=== PATIENT | male | born 1970 | race Caucasian/White ===

== ENCOUNTER 2018-09-16 05:58 | Outpatient (CLI) | payer BC ==
[~2018-09-16] VITALS: Ht 180.3 cm; Wt 88.5 kg
[2018-09-16] MEDS ORDERED: PANT40TA3 PO (11:52)
[2018-09-16] MEDS ORDERED: ALLO100T PO (11:52)
[2018-09-16] MEDS ORDERED: LISI1TAB6 PO (11:52)
[2018-09-20] MEDS ORDERED: SUCR1TAB36 PO (10:03)
== END 2018-09-16 11:54 | disposition home or self-care (01) ==
LOC: PREOP 05:58
PROVIDERS: ATTEND Surgery
DX: Z01.818 Encounter for other preprocedural examination (principal)

== ENCOUNTER 2018-09-20 09:18 | Day surgery (SDC) | payer BC ==
[~2018-09-20] VITALS: Ht 180.3 cm; Wt 88.5 kg
[~2018-09-20 09:18] MED LIST: ALLO100T PO; LISI1TAB6 PO; PANT40TA3 PO
[2018-09-20] MEDS ORDERED: LACTATED RINGERS 1,000 ML IV ONE (09:25)
[2018-09-20] MEDS ORDERED: LIDOCAINE JELLY 2% 6 ML SYRINGE MM PRN (09:30)
[2018-09-20] MEDS ORDERED: LACTATED RINGERS 1,000 ML IV STA (09:30)
[2018-09-20] MEDS ORDERED: HURRICAINE EXT TUBE (BENZOCAINE) XX PRN (09:30)
[2018-09-20 09:43] VITALS: BP 132/92
[2018-09-20] MEDS ORDERED: LIDOCAINE JELLY 2% 6 ML SYRINGE ONE (09:51)
[2018-09-20] MEDS ORDERED: HURRICAINE EXT TUBE (BENZOCAINE) ONE (09:52)
[2018-09-20] MEDS ORDERED: MIDAZOLAM 2 MG/2 ML (VERSED) VIAL ONE (10:01)
[2018-09-20] MEDS ORDERED: PROPOFOL INJECTION 50 ML IV ONE ×2 (10:01→10:20)
--- NOTE | 2018-09-20 10:02 | Progress Note-Pre Operative ---
Pre-Operative Progress Note H&P Reviewed The H&P was reviewed, patient examined and no changes noted. Date Seen by Provider: Sep 20, 2018 Time Seen by Provider: : Date H&P Reviewed: Sep 20, 2018 Time H&P Reviewed: : Pre-Operative Diagnosis: GERD, rectal bleed AURELIO SETH MD Sep 20, 2018 10:02
[2018-09-20] MEDS ORDERED: SUCR1TAB36 PO (10:03)
--- NOTE | 2018-09-20 10:04 | Discharge Inst-Surgical ---
D/C Lap Instructions-KIDO New, Converted, or Re-Newed RX: RX on Chart Follow Up Activity as tolerated High Fiber Diet 25g or more per day Avoid Alcohol, Caffeine, Spicy House and Acid foods. Drink 64 fluid oz or more of fluids per day. Symptoms to Report: Fever over 101 degree F, Nausea/Vomiting If any problems/questions: Contact your physician or go to Emergency Room AURELIO SETH MD Sep 20, 2018 10:04
[2018-09-20] MEDS ORDERED: morphine INJ 10 MG/ML 1ML (SYR OR VIAL) IV PRN (10:15)
[2018-09-20] MEDS ORDERED: ACETAMINOPHEN 325 MG TABLET PO PRN (10:15)
[2018-09-20] MEDS ORDERED: ONDANSETRON 4 MG/2 ML (SDV) Z0FRAN IV PRN (10:15)
[2018-09-20] MEDS ORDERED: HYDROcodone/APAP 5 MG/325 MG (LORTAB) TAB PO PRN (10:15)
--- NOTE | 2018-09-20 10:55 | Progress Note-Post Operative ---
Post-Operative Progess Note Surgeon (s)/Qa Specialist (s) Surgeon AURELIO SETH MD Qa Specialist: none Pre-Operative Diagnosis GERD, rectal bleed Post-Operative Diagnosis reflux esophagitis(stage 2), moderate-large HH(4-5cm), moderate gastritis. chronic stage 2 ext and int hemorrhoids, moderate sigmoid diverticulosis. Procedure & Operative Findings Date of Procedure 09/20/18 Procedure Performed/Findings EGD with bx. Colonoscopy. Anesthesia Type mac Estimated Blood Loss Estimated blood loss (mL): minimal Specimens/Packing Specimens Removed ge jxn, antrum AURELIO SETH MD Sep 20, 2018 10:55
[2018-09-20 11:05] VITALS: BP 121/88
[2018-09-20 11:35] VITALS: BP 127/94
[2018-09-20 12:00] VITALS: BP 127/94
--- NOTE | 2018-09-20 12:13 | Anesthesia-General Post-Op ---
MAC Patient Condition Mental Status/LOC: Same as Preop Cardiovascular: Satisfactory Nausea/Vomiting: Absent Respiratory: Satisfactory Pain: Controlled Complications: Absent Post Op Complications Complications None Follow Up Care/Instructions Patient Instructions None needed. Anesthesiology Discharge Order Discharge Order Patient is doing well, no complaints, stable vital signs, no apparent adverse anesthesia problems. No complications reported per nursing. HUONG WILLIS CRNA Sep 20, 2018 12:13
--- NOTE | 2018-09-20 12:20 | OPERATIVE REPORT ---
DATE OF SERVICE: 09/20/2018 ATTENDING PRIMARY CARE PHYSICIAN: Dr. Cuenca. PREOPERATIVE DIAGNOSES: Gastroesophageal reflux disease, rectal bleeding. POSTOPERATIVE DIAGNOSES: Reflux esophagitis, stage II. Moderate to large size hiatal hernia which appears to be a type 3 and approximately 4 to 5 cm in size. Moderate gastritis. No distal obstructions. Chronic stage II external and internal hemorrhoids, moderate sigmoid diverticulosis. No polyps identified. PROCEDURE: EGD with biopsy, colonoscopy. SURGEON: Aurelio Seth MD ANESTHESIA: Monitored anesthesia care. ESTIMATED BLOOD LOSS: Minimal. FINDINGS: As above in the postop diagnoses. DISPOSITION: The patient tolerated the procedure well. INDICATIONS: The patient is a 48-year-old male referred over to us for dark tarry stools as well as intermittent episodes of red blood per rectum. He states that this has been going on for several weeks. He does state a family history of colon cancer as well with his father being diagnosed with disease at age 59. He also has significant gastroesophageal reflux disease for years, which has worsened. He does have risk factors including drinking alcohol as well as chewing tobacco for greater than 23 years; however, recently stopped. He does have also episodes of constipation at times. DESCRIPTION OF PROCEDURE: The patient was brought to the endoscopy suite, laid in left lateral decubitus position. After adequate IV pain and sedative medications and conscious sedation anesthesia and monitored anesthesia care, the mouthpiece was applied. The endoscope was then gently intubated in the esophageal opening and esophagus insufflated. The endoscope was then advanced to the 1st, 2nd, 3rd portions of the esophagus at the level of the GE junction, a reflux esophagitis stage II was identified. The gastroesophageal junction was also intrathoracic consistent with hiatal hernia. A biopsy was taken of the GE junction with forceps with visualization of good hemostasis. The endoscope was then advanced into the stomach and endoscope retroflexed, visualizing a significant sized hiatal hernia approximately 4 to 5 cm in size and this appeared to be a type 3 hiatal hernia. Moderate gastritis was noted. There were no formal ulcerations, polyps or any neoplasms. A biopsy was taken of the antrum to rule out H. pylori with visualization of good hemostasis. The endoscope was then advanced to the pylorus and the first and second portion of the duodenum, which appeared normal with no distal obstructions. The endoscope was then slowly withdrawn while taking a second look and suctioning residual air with no additional findings. The patient tolerated this portion of the procedure well. We will recommend continued conservative management for now with necessary lifestyle and diet accommodation including small and more frequent meals, avoidance of eating at night as well as head elevation while lying supine. We also would recommend that he reduce or stop drinking alcoholic beverages, which is a major risk factor as well as nicotine products. He is currently on Protonix and we will add Carafate for symptomatic relief. If he continues to have symptoms despite maximal medical therapy, he may be a candidate for an antireflux hiatal hernia repair as well as an antireflux procedure. However, we would proceed with proper testing including an esophageal manometry before. Under the same anesthesia, we then proceeded with colonoscopy portion of the procedure. A digital rectal examination was performed, which revealed chronic stage II external and internal hemorrhoids, not actively edematous nor inflamed and no bleeding. Normal sphincter tone was felt and there were no palpable masses. Prostate gland was palpable and appeared normal. The endoscope was then intubated to the anus, rectum and gently insufflated. The endoscope was then advanced to the valves of Keith of the rectum with no polyps or any neoplasms identified. We then proceeded through the sigmoid colon, where a moderate sigmoid diverticulosis identified. There were no mucosal inflammatory changes to indicate any active diverticulitis. The endoscope was then advanced to the remainder of the descending, transverse, ascending colon to the cecum. These segments were normal. There were no polyps or any neoplasms identified throughout the colon or rectum. The endoscope was then slowly withdrawn while taking a second look and suctioning of residual air with no additional findings. The patient tolerated the procedure well. We will recommend medical management with a high fiber diet with at least 30 grams of fiber per day as well as significant amounts of water daily to promote soft stools daily. Job ID: [id number] DocumentID: [id number] Dictated Date: 09/20/2018 10:52:50 Fire Hose Curer Date: 09/20/2018 12:19:05 Dictated By: AURELIO SETH MD
== END 2018-09-20 12:00 | disposition home or self-care (01) ==
LOC: ENDO 09:18
PROVIDERS: ATTEND Surgery
DX: K57.30 Diverticulosis of large intestine without perforation or abscess without bleeding (principal); K64.1 Second degree hemorrhoids; K21.0 Gastro-esophageal reflux disease with esophagitis; K44.9 Diaphragmatic hernia without obstruction or gangrene; K29.50 Unspecified chronic gastritis without bleeding; Z80.0 Family history of malignant neoplasm of digestive organs; I10 Essential (primary) hypertension; M10.9 Gout, unspecified; Z79.899 Other long term (current) drug therapy; Z87.891 Personal history of nicotine dependence; Z72.89 Other problems related to lifestyle

== ENCOUNTER 2020-03-02 01:58 | Emergency (ER) | payer BC ==
[~2020-03-02] VITALS: Ht 177.8 cm; Wt 87.9 kg
[~2020-03-02 01:58] MED LIST changes: +LISI1TAB29 PO; -LISI1TAB6 PO; -PANT40TA3 PO; +PANT40TA52 PO; +SUCR1TAB36 PO
[2020-03-02] MEDS ORDERED: meTOprolol 5 MG/5 ML (LOPRESSOR) VIAL IV ONE (02:15)
--- NOTE | 2020-03-02 02:20 | ED General ---
General Chief Complaint: Dizziness/Syncope Stated Complaint: DIZZY AND LIGHT HEADED Source of Information: Patient, EMS Notes Reviewed, RN/, RN Notes Reviewed History of Present Illness Date Seen by Provider: Mar 02, 2020 Time Seen by Provider: 02:05 Initial Comments This patient is a 49-year-old male with a history of hypertension presents to the emergency department for a dizziness episode of near-syncope while at work. 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 Patient says he also got real dizzy and had a be caught by an employee. Patient presents with a heart rate of 122 sinus tachycardia. Nonspecific EKG changes. Blood pressure 176/107. We'll do medical evaluation treatment is needed. Timing/Duration: 1/2 Hour Severity: Moderate Associated Systoms: Weakness, Other (Dizziness) Allergies and Home Medications Allergies Coded Allergies: No Known Drug Allergies (Unverified , 09/16/18) Home Medications Allopurinol 100 Mg Tablet, 100 MG PO DAILY, (Reported) Lisinopril/Hydrochlorothiazide 1 Each Tablet, 1 EACH PO DAILY, (Reported) Pantoprazole Sodium 40 Mg Tablet.dr, 40 MG PO DAILY, (Reported) Sucralfate 1 Gm Tablet, 1 GM PO QID Prescribed by: AURELIO SETH on 09/20/18 1003 Patient Home Medication List Home Medication List Reviewed: Yes Review of Systems Review of Systems Constitutional: No no symptoms reported; see HPI; No chills, No diaphoresis, No dizziness, No fever, No malaise, No weakness, No weight gain, No weight loss, No other EENTM: No see HPI, No no symptoms reported, No ear discharge, No hearing loss, No ear pain, No blurred vision, No double vision, No eye pain, No tearing, No vision loss, No dental problems, No hoarseness, No mouth pain, No mouth swelling, No epistaxis, No nose congestion, No nose pain, No throat pain, No throat swelling, No other Respiratory: No no symptoms reported, No see HPI, No cough, No dyspnea on exertion, No hemoptysis, No orthopnea, No phlegm, No short of breath, No stridor, No wheezing, No other Cardiovascular: No no symptoms reported; see HPI; No chest pain, No edema, No Hx of Intervention; palpitations, syncope; No vascular heart diseas, No other Gastrointestinal: No RUQ, No LUQ, No RLQ, No LLQ, No no symptoms reported, No see HPI, No abdominal pain, No constipation, No diarrhea, No dysphagia, No hematemesis, No heartburn, No jaundice, No loss of appetite, No melena, No nausea, No vomiting, No other Genitourinary: No no symptoms reported, No see HPI, No decreased output, No discharge, No dysuria, No frequency, No hematuria, No hesitancy, No incontinence, No nocturia, No pain, No other Musculoskeletal: No no symptoms reported, No see HPI, No back pain, No gout, No joint pain, No joint swelling, No muscle pain, No muscle stiffness, No muscle cramps, No muscle twitching, No muscle weakness, No neck pain, No other Skin: No no symptoms reported, No see HPI, No change in color, No change in hair/nails, No dryness, No hx of skin cancer, No lesions, No lumps, No pruritus, No rash, No other All Other Systems Reviewed Negative Unless Noted: Yes Past Edcxwdl-Nlvtua-Qcizjm Hx Patient Social History Alcohol Beverage of Choice: Whiskey Type Used: Smokeless Tobacco 2nd Hand Smoke Exposure: No Recent Foreign Travel: No Contact w/Someone Who Travel: No Recent Hopitalizations: No Immunizations Up To Date Tetanus Booster (TDap): Unknown Seasonal Allergies Seasonal Allergies: No Past Medical History Surgeries: Yes (R shoulder sx, back sx) Appendectomy Respiratory: Yes Asthma Currently Using CPAP: No Currently Using BIPAP: No Cardiac: Yes Hypertension Neurological: No Sexually Transmitted Disease: No HIV/AIDS: No Genitourinary: No Gastrointestinal: Yes (rectal bleeding, dark stools) Gastroesophageal Reflux Musculoskeletal: Yes Gout Endocrine: No HEENT: No Loss of Vision: Denies Hearing Impairment: Denies Cancer: No Psychosocial: No Integumentary: No Blood Disorders: No Physical Exam Vital Signs Vital Signs - First Documented 03/02/20 02:06 Temp 36.5 Pulse 123 Resp 21 B/P (MAP) 176/107 (130) Pulse Ox 96 O2 Delivery Room Air Capillary Refill : Height, Weight, BMI Height: 5'11.00" Weight: 195lbs. 0.0oz. 88.523262ly; 27.2 BMI Method: General Appearance: No Apparent Distress, WD/WN Respiratory: Chest Non Tender, Lungs Clear, Normal Breath Sounds, No Accessory Muscle Use, No Respiratory Distress Cardiovascular: No Edema, No Gallop, No JVD, No Murmur, Normal Peripheral Pulse s, Tachycardia Gastrointestinal: Normal Bowel Sounds, No Organomegaly, No Pulsatile Mass, Non Tender, Soft Extremity: Normal Capillary Refill, Normal Inspection, Normal Range of Motion, Non Tender, No Calf Tenderness, No Pedal Edema Neurologic/Psychiatric: Alert, Oriented x3, No Motor/Sensory Deficits, Normal Mood/Affect Skin: Normal Color, Warm/Dry Progress/Results/Core Measures Suspected Sepsis SIRS Temperature: Pulse: Respiratory Rate: Laboratory Tests 03/02/20 02:14: White Blood Count 6.8 Blood Pressure / Mean: Laboratory Tests 03/02/20 02:14: Creatinine 1.08, INR Comment 0.9, Platelet Count 214, Total Bilirubin 0.2 Results/Orders Lab Results Laboratory Tests Test 03/02/20 02:14 Range/Units White Blood Count 6.8 4.3-11.0 10^3/uL Red Blood Count 4.48 4.35-5.85 10^6/uL Hemoglobin 14.1 13.3-17.7 G/DL Hematocrit 42 40-54 % Mean Corpuscular Volume 94 80-99 FL Mean Corpuscular Hemoglobin 31 25-34 PG Mean Corpuscular Hemoglobin Concent 33 32-36 G/DL Red Cell Distribution Width 15.7 H 10.0-14.5 % Platelet Count 214 130-400 10^3/uL Mean Platelet Volume 10.0 7.4-10.4 FL Immature Granulocyte % (Auto) 1 % Neutrophils (%) (Auto) 56 42-75 % Lymphocytes (%) (Auto) 28 12-44 % Monocytes (%) (Auto) 10 0-12 % Eosinophils (%) (Auto) 4 0-10 % Basophils (%) (Auto) 1 0-10 % Neutrophils # (Auto) 3.9 1.8-7.8 X 10^3 Lymphocytes # (Auto) 1.9 1.0-4.0 X 10^3 Monocytes # (Auto) 0.7 0.0-1.0 X 10^3 Eosinophils # (Auto) 0.3 0.0-0.3 10^3/uL Basophils # (Auto) 0.1 0.0-0.1 10^3/uL Immature Granulocyte # (Auto) 0.0 0.0-0.1 10^3/uL Prothrombin Time 12.6 12.2-14.7 SEC INR Comment 0.9 0.8-1.4 Sodium Level 146 H 135-145 MMOL/L Potassium Level 3.9 3.6-5.0 MMOL/L Chloride Level 106 98-107 MMOL/L Carbon Dioxide Level 23 21-32 MMOL/L Anion Gap 17 H 5-14 MMOL/L Blood Urea Nitrogen 13 7-18 MG/DL Creatinine 1.08 0.60-1.30 MG/DL Estimat Glomerular Filtration Rate > 60 BUN/Creatinine Ratio 12 Glucose Level 104 70-105 MG/DL Calcium Level 9.2 8.5-10.1 MG/DL Corrected Calcium 8.5-10.1 MG/DL Total Bilirubin 0.2 0.1-1.0 MG/DL Aspartate Amino Transf (AST/SGOT) 60 H 5-34 U/L Alanine Aminotransferase (ALT/SGPT) 43 0-55 U/L Alkaline Phosphatase 63 40-136 U/L Troponin I < 0.30 <0.30 NG/ML Pro-B-Type Natriuretic Peptide 19.0 <75.0 PG/ML Total Protein 7.6 6.4-8.2 GM/DL Albumin 4.6 H 3.2-4.5 GM/DL My Orders Orders - ESPERANZA KING MD Ct Head Wo (03/02/20 02:13) Orthostatic Vital Signs (Adult (03/02/20 02:13) Ed Iv/Invasive Line Start (03/02/20 02:13) Cbc With Automated Diff (03/02/20 02:13) Comprehensive Metabolic Panel (03/02/20 02:13) Urinalysis (03/02/20 02:13) Protime With Inr (03/02/20 02:13) Probnp Fs (03/02/20 02:13) Troponin I Fs (03/02/20 02:13) Chest 1 View Ap/Pa Only (03/02/20 02:13) Ekg Tracing (03/02/20 02:13) Metoprolol Tartrate Injection (Lopressor (03/02/20 02:15) Medications Given in ED Current Medications Medications Dose Ordered Sig/Megha Route Start Time Stop Time Status Last Admin Dose Admin Metoprolol Tartrate 5 mg ONCE ONCE IV 03/02/20 02:15 03/02/20 02:16 DC 03/02/20 02:38 5 MG Vital Signs/I&O 03/02/20 03/02/20 02:06 02:26 Temp 36.5 Pulse 123 115 124 125 Resp 21 B/P (MAP) 176/107 (130) 172/91 (118) 159/100 (119) 157/102 (120) Pulse Ox 96 O2 Delivery Room Air Capillary Refill : Progress Note : Time: 03:24 Progress Note Patient's initial blood pressures was 170s over 104. Heart rate 120. Symptoms resolve after patient be given metoprolol hold. Heart rate at this time is 93 blood pressure 155/93. Patient states he is much improved. Patient does take blood pressure medications at home. I did discuss at length with patient about avoiding caffeine and caffeinated drinks. We did discuss at length with patient possible arrhythmia causing the dizziness. But is not apparent here upon arrival. Patient has no signs or symptoms of atrial fibrillation appears to be in a normal sinus rhythm at this time EKG showed sinus tach upon arrival. Patient states understanding he will follow-up with primary care physician. ECG Initial ECG Impression Date: Mar 02, 2020 Initial ECG Impression Time: 02:10 Initial ECG Rate: 119 Initial ECG Rhythm: S.Tach Initial ECG Intervals: Normal Initial ECG Impression: Normal, Nonspecific Changes Comment Sinus tachycardia with a heart rate [address] changes. Abnormal EKG Departure Impression Primary Impression: Dizziness Additional Impression: Hypertension Disposition: 01 HOME, SELF-CARE Condition: Stable Departure-Patient Inst. Decision time for Depature: 03:26 Referrals: CARYL TATE DO (PCP/Family) Primary Care Physician Patient Instructions: Dizziness, Nonvertigo, (DC) Add. Discharge Instructions: Continue with all home medications. Follow-up with your primary care physician in 2-3 days for further evaluation. All discharge instructions reviewed with patient and/or family. Voiced understanding. Work/School Note: Work Release Form Return to Work: Mar 03, 2020 Restrictions: No Restrictions ESPERANZA KING MD Mar 02, 2020 02:20
[2020-03-02 02:26] VITALS: BP_SYST 157; BP_SYST 159; BP_SYST 172; BP_DIAS 100; BP_DIAS 102; BP_DIAS 91
[2020-03-02 02:55] LABS: HEMATOCRIT 42 % (40-54); HEMOGLOBIN 14.1 G/DL (13.3-17.7); MEAN CORPUSCULAR HEMOGLOBIN 31 PG (25-34); MEAN CORPUSCULAR HGB CONC 33 G/DL (32-36); MEAN CORPUSCULAR VOLUME 94 FL (80-99); WHITE BLOOD COUNT 6.8 10^3/uL (4.3-11.0)
[2020-03-02 02:56] LABS: BASOPHILS % (AUTO) 1 % (0-10); EOSINOPHILS % (AUTO) 4 % (0-10); LYMPHOCYTES # (AUTO) 1.9 X 10^3 (1.0-4.0); LYMPHOCYTES % (AUTO) 28 % (12-44); MONOCYTES % (AUTO) 10 % (0-12); NEUTROPHILS # (AUTO) 3.9 X 10^3 (1.8-7.8); NEUTROPHILS % (AUTO) 56 % (42-75); PLATELET COUNT 214 10^3/uL (130-400)
[2020-03-02 02:57] LABS: BASOPHILS # (AUTO) 0.1 10^3/uL (0.0-0.1); EOSINOPHILS # (AUTO) 0.3 10^3/uL (0.0-0.3); MONOCYTES # (AUTO) 0.7 X 10^3 (0.0-1.0)
[2020-03-02 03:01] LABS: INR 0.9 (0.8-1.4); PROTHROMBIN TIME PATIENT 12.6 SEC (12.2-14.7)
[2020-03-02 03:20] LABS: CARBON DIOXIDE 23 MMOL/L (21-32); CHLORIDE 106 MMOL/L (98-107); POTASSIUM 3.9 MMOL/L (3.6-5.0); SODIUM 146 MMOL/L (135-145)
[2020-03-02 03:21] LABS: ALANINE AMINOTRANSFERASE 43 U/L (0-55); ALBUMIN 4.6 GM/DL (3.2-4.5); ALKALINE PHOSPHATASE 63 U/L (40-136); BILIRUBIN,TOTAL 0.2 MG/DL (0.1-1.0); BUN/CREATININE RATIO 12; CALCIUM 9.2 MG/DL (8.5-10.1); CREATININE SERUM 1.08 MG/DL (0.60-1.30); GFR ESTIMATED > 60; GLUCOSE 104 MG/DL (70-105); TOTAL PROTEIN 7.6 GM/DL (6.4-8.2)
[2020-03-02 03:40] VITALS: BP 155/93
--- NOTE | 2020-03-02 06:25 | Diagnostic Imaging Report ---
INDICATION: Dizziness, near syncope. TECHNIQUE: Single view chest 2:30 AM. CORRELATION STUDY: None FINDINGS: The heart size, mediastinal configuration and pulmonary vascularity are within normal limits. The lungs are clear with no consolidating infiltrate. There is no significant effusion or pneumothorax. IMPRESSION: 1. Negative for acute abnormality of the chest. Dictated by: Dictated on workstation # [id number]
--- NOTE | 2020-03-02 06:28 | Diagnostic Imaging Report ---
PROCEDURE: CT head without contrast. TECHNIQUE: Multiple contiguous axial images were obtained through the brain without the use of intravenous contrast. Auto Exposure Controls were utilized during the CT exam to meet ALARA standards for radiation dose reduction. INDICATION: Dizziness, near syncope CORRELATION: None FINDINGS: There is no midline shift or mass effect. The ventricles and sulci are unremarkable. No evidence for acute intracranial hemorrhage, abnormal extra-axial fluid collections or cerebral edema is present. The basilar cisterns are unremarkable. The bony calvarium is intact. Moderate mucosal thickening with probable cysts or polyps right maxillary sinus. IMPRESSION: Negative appearing noncontrast CT of the head. Initial report was provided by [facility]. Dictated by: Dictated on workstation # [id number]
== END 2020-03-02 03:40 | disposition home or self-care (01) ==
LOC: EDUNIT# 01:58 → ER FS 02:02
DX: R42 Dizziness and giddiness (principal); I10 Essential (primary) hypertension; K21.9 Gastro-esophageal reflux disease without esophagitis; M10.9 Gout, unspecified
CPT/HCPCS: 36415; 70450; 71045; 80053; 83880; 84484; 85025; 85610; 93005